=== PATIENT | male | born 1980 | race Caucasian/White ===

== ENCOUNTER 2023-04-09 18:38 | Inpatient (IN) | payer MEDICARE, OTHER, SELFPAY ==
[2023-04-09 18:40] VITALS: BP 121/76; PULSE 69; RESP 18; TEMP 36.6; O2SAT 99; BMI 22.4
--- NOTE | 2023-04-09 18:42 | ECG_ITS ---
[facility] Test Date: 2023-04-09 Pat Name: Chauncey Garcia Department: Room: Gender: Male Biometrics Experimentalist: : 1980 Requested By: Dion Enamorado Order Number: [id number] Geronimo MD: Isma Riggins M.D. Measurements Intervals [place] Rate: 50 P: 0 ID: 0 QRS: 67 QRSD: 96 T: 65 QT: 432 QTc: 394 Interpretive Statements SINUS BRADYCARDIA No previous ECG available for comparison Electronically Signed On 04-12-2023 7:59:18 OFFICE MACHINE INSPECTOR by Isma Riggins M.D. [email or web address]
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
[2023-04-09 18:57] LABS: Basophils % 0.3 %; Eosinophils # 0.1 10^3/uL (0.0-0.8); Eosinophils % 0.6 %; Hematocrit 42.4 % (37-53); Lymphocytes % 22.1 %; Mean Corpuscular HGB Conc 33.3 g/dL (30-55); Mean Corpuscular Hemoglobin 32.2 pg (27-33); Mean Corpuscular Volume 96.8 fl (82-101); Mean Platelet Volume 10.3 fL (7.4-10.4); Monocytes # 0.7 10^3/uL (0.2-0.9); Monocytes % 8.3 %; Neutrophils # 6.09 10^3/uL (1.8-7.7); Neutrophils % 68.5 %; Nucleated Red Blood Cells % 0 %; Platelet Count 349 10^3/cmm (157-399); Red Blood Count 4.38 10^6/uL (3.85-5.65); Red Cell Distribution Width 12.4 % (12.1-15.1)
[2023-04-09 19:06] VITALS: RESP 22
[2023-04-09 19:08] LABS: Add Urine Microscopic? NO; Charge for UA Resulting for Rev
[2023-04-09 19:13] LABS: Bilirubin Urine Neg (Negative); Blood Urine Neg (Negative); Glucose Urine UA Norm (Normal); Ketones Urine 1+ (Negative); Leukocyte Esterase Urine Negative (Negative); Nitrate Urine Negative (Negative); Protein Urine Neg (Negative); Specific Gravity, Urine 1.005 (1.005-1.030); Urine Appearance Clear (CLEAR); Urine Color Yellow (Yellow); Urobilinogen Urine Norm (Negative); pH Urine 6.5 (5-7)
[2023-04-09 19:15] LABS: Alanine Aminotransferase 20 U/L (0-41); Albumin Level 4.6 g/dL (3.5-5.2); Alkaline Phosphatase 71 U/L (40-130); Anion Gap 15.8 (5-19); Aspartate Amino Transferase 20 U/L (0-40); Blood Urea Nitrogen 14 mg/dL (6-20); Calcium 9.9 mg/dL (8.5-10.5); Carbon Dioxide 26 mmol/L (22-29); Chloride 101 mmol/L (98-107); Globulin 2.7 g/dL (1.3-4.6); Glucose 98 mg/dL (65-115); Osmolality Calculated 288 mOsm/kg (285-295); Potassium 3.8 mmol/L (3.5-5.1); Sodium 139 mmol/L (136-145); Total Protein 7.3 g/dL (6.6-8.7)
[2023-04-09 19:17] LABS: Acetaminophen < 5.0 ug/mL (10-30); Alcohol Level < 10 mg/dL (0-10); Salicylate < 0.3 mg/dL (3-10)
[2023-04-09 19:19] LABS: Amphetamines Screen Urine Negative (Negative); Barbiturates Screen Urine Negative (Negative); Benzodiazepines Screen Urine Negative (Negative); Cocaine Screen Urine Negative (Negative); Opiate Screen Urine Negative (Negative); PCP Screen Urine Negative (Negative); THC Screen Urine Positive (Negative)
[2023-04-09 20:21] VITALS: BP 142/85; PULSE 60; RESP 20; O2SAT 98
[2023-04-09 21:57] VITALS: BP 142/85; PULSE 60; RESP 20; O2SAT 98
[2023-04-10] MEDS: nicotine 4 mg lozenge MUCOUS MEM ×2 (05:09→09:49)
[2023-04-10 06:00] VITALS: BP 135/81; PULSE 71; RESP 18; O2SAT 97
[2023-04-10 08:28] LABS: Basophils % 0.3 %; Eosinophils % 0.5 %; Lymphocytes # 1.1 10^3/uL (0.8-4.8); Lymphocytes % 14.6 %; Mean Corpuscular HGB Conc 32.9 g/dL (30-55); Mean Corpuscular Hemoglobin 31.9 pg (27-33); Mean Platelet Volume 10.2 fL (7.4-10.4); Monocytes # 0.5 10^3/uL (0.2-0.9); Monocytes % 7.2 %; Neutrophils % 77.1 %; Nucleated Red Blood Cells % 0 %; Platelet Count 337 10^3/cmm (157-399); Red Blood Count 4.64 10^6/uL (3.85-5.65); Red Cell Distribution Width 12.6 % (12.1-15.1); White Blood Count 7.39 10^3/uL (3.29-11.43)
[2023-04-10 08:52] LABS: Anion Gap 14.7 (5-19); Blood Urea Nitrogen 11 mg/dL (6-20); Calcium 10.1 mg/dL (8.5-10.5); Carbon Dioxide 27 mmol/L (22-29); Chloride 100 mmol/L (98-107); Glucose 103 mg/dL (65-115); Osmolality Calculated 286 mOsm/kg (285-295); Potassium 3.7 mmol/L (3.5-5.1); Sodium 138 mmol/L (136-145)
[2023-04-10] MEDS: nicotine 2 mg Gum BUCCAL ×2 (09:21→18:27)
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
--- NOTE | 2023-04-10 09:59 | PC.NURSE ---
Dr. Gauthier approved pt to have nicotine tucker at earlier administration time than protocol.
--- NOTE | 2023-04-10 10:52 | PC.NURSE ---
laying in bed. patient has been frequenting the window, concerned about welfare of his pets. Patient called the PD to check on pets, but they refused.
[2023-04-10] MEDS: OLANZapine 5 mg ODT PO (11:33)
--- NOTE | 2023-04-10 12:30 | PC.NURSE ---
Patient was willing to take medication to help lower his anxieties. Patient anxious about the safety of his three cats and four dogs that are home without him. This nurse administered 5mg Zyprexa ODT. No adverse reactions.
[2023-04-10 14:00] VITALS: RESP 13
--- NOTE | 2023-04-10 18:37 | PC.NURSE ---
PT WAS RESTING QUIETLY, RESPIRATIONS WERE OBTAINED AT 13. WILL CONTINUE TO MONITOR.
[2023-04-10] MEDS: ARIPiprazole 10 mg Tablet PO (19:53)
[2023-04-10] MEDS: hyDROXYzine 25 mg Capsule 50 MG PO (20:38)
[2023-04-10] MEDS: trazodone 50 mg Tablet PO (20:38)
[2023-04-10 21:06] VITALS: BP 100/69; PULSE 67; RESP 18; O2SAT 97
[2023-04-11 06:00] VITALS: RESP 16
[2023-04-11] MEDS: nicotine 4 mg lozenge MUCOUS MEM ×2 (07:30→17:49)
[2023-04-11] MEDS: ARIPiprazole 10 mg Tablet PO (07:30)
--- NOTE | 2023-04-11 07:53 | P.NPUPN_ITS ---
Subjective NPU 2 Subjective: Patient presented today reporting that he is doing better than he expected. We discussed the fact that Dr. Delcid would be here tomorrow and will be making the decisions about discharge. He had reluctantly taking the Abilify and endorsed that he is really surprised about how much it helped how much it calm down his worry thinking about his dogs and his rapid thoughts. We discussed that it does appear that he is suffering from kelsi and this is a medication that really could help that and could even be considered as an injection so that he would not have adherence issues. He denied any side effects to the medication. Mental Status Exam 2 MSE Comments: This is a slender well-developed white male, in hospital scrubs, with adequate grooming and eye contact. No abnormal movements except for psychomotor agitation. Cooperative with exam in mild to moderate distress. Speech was increased rate and volume and slightly pressured. Mood described as anxious and upbeat because he needs to see his dogs; affect congruent and hyper. Thought process, organized. Thought content: patient denied any suicidal or homicidal ideation, there were no delusions reported but grandiose thinking noted, patient denied any auditory or visual hallucinations. Attention concentration were limited, and memory appeared unreliable at times, but none were formally tested. Alert and oriented times three. Insight and judgment appear limited . Impulse control is impaired. Vitals/I&O/Wt Last Vital Signs Temp 97.8 F 04/11/23 14:00 Pulse 65 04/11/23 14:00 Resp 13 04/11/23 14:00 BP 134/76 04/11/23 14:00 Pulse Ox 99 04/11/23 14:00 O2 Del Method Room Air 04/09/23 21:57 Weight last 48 hrs Weight 76.204 kg Weight 75.92 kg Data NPU 04/10/23 08:21 04/10/23 08:21 A&P Assessment and plan (1) Acute psychosis: (2) Kelsi: (3) Cannabis use disorder: Plan This is a 43-year-old white male with a reported history of mental health challenges that he has not treated with traditional medications but with excessive marijuana who presents reportedly open to medication if and will speed up his discharge. 1. Encourage individual, group, and milieu therapy. 2. Continue q-15-minute checks for safety. 3. Continue Abilify 10 mg p.o. daily. 4. Encourage sober living treatment after discharge at the highest level of care to which he is willing to commit. Involuntary Hold Information 2 96 Hour Hold: 96 Hour Involuntary Admission: Yes 96 Hour Hold Ending Date: 04/16/23 96 Hour Hold Ending Time: 00:01 Attestations NPU 2 Medical Necessity Statement*: Inpatient hospitalization is medically necessary and the clinically appropriate intervention, at this time. We will monitor medications and make changes as indicated. Likely length of stay is 2-4 days. Coding Level of Care Code Acute Code for Chg Fwd Diagnoses Acute psychosis F23 Kelsi F30.9 Cannabis use disorder F12.90
[2023-04-11] MEDS: hyDROXYzine 25 mg Capsule 50 MG PO ×2 (12:32→18:44)
[2023-04-11 14:00] VITALS: BP 134/76; PULSE 65; RESP 13; TEMP 36.6; O2SAT 99
[2023-04-11 20:07] VITALS: RESP 16
[2023-04-12] MEDS: nicotine 4 mg lozenge MUCOUS MEM ×6 (05:12→18:22)
[2023-04-12 06:00] VITALS: BP 144/87; PULSE 80; RESP 18; O2SAT 97
[2023-04-12] MEDS: ARIPiprazole 10 mg Tablet PO (08:21)
[2023-04-12 14:00] VITALS: BP 129/84; PULSE 70; RESP 13; TEMP 36.9; O2SAT 100
--- NOTE | 2023-04-12 19:37 | P.NPUPN_ITS ---
Subjective NPU 2 Subjective: 43-year-old male presenting with manic s ymptoms who continued to appear somewhat grandiose on the unit. Patient had reported some improvement with the Abilify. He had continued to report that he was uncertain as to why he was here in the hospital. Patient had discussed that he had a disagreement with the police. He had stated that he had been hospitalized in the past for reported bipolar disorder. He had admitted to the use of cannabis. He had stated that he was concerned about his dogs. He reported adequate sleep and stated that he was less irritable on Abilify. He reported no suicidal thoughts. He had continued to report having many special gifts while reporting that he spoke multiple languages and had extensive experience in a variety of vocational skills. He had minimized any side effects from his current medication regimen. Mental Status Exam 2 MSE Comments: This is a slender well-developed white male, in hospital scrubs, with adequate grooming and eye contact. No abnormal movements except for psychomotor agitation. He was cooperative with exam in mild to moderate distress. Speech was normal in volume and slightly pressured. Mood described as better. His affect appeared excessively euphoric and mood incongruent. Thought process was linear and organized. Thought content: patient denied any suicidal or homicidal ideation, there were no delusions reported but continued evidence of grandiosity. Patient denied any auditory or visual hallucinations. Attention concentration were limited, and memory appeared unreliable at times, but none were formally tested. Alert and oriented times three. Insight and judgment appear limited . Impulse control is impaired. Vitals/I&O/Wt Last Vital Signs Temp 98.5 F 04/12/23 14:00 Pulse 70 04/12/23 14:00 Resp 13 04/12/23 14:00 BP 129/84 04/12/23 14:00 Pulse Ox 100 04/12/23 14:00 O2 Del Method Room Air 04/09/23 21:57 Weight last 48 hrs Weight 76.204 kg Weight 75.92 kg Data NPU 04/10/23 08:21 04/10/23 08:21 A&P Assessment and plan (1) Acute psychosis: (2) Kelsi: (3) Cannabis use disorder: Plan This is a 43-year-old white male with a reported history of mental health challenges that he has not treated with traditional medications but with excessive marijuana who presents reportedly open to medication if and will speed up his discharge. 1. Encourage individual, group, and milieu therapy. 2. Continue q-15-minute checks for safety. 3. Increase Abilify to 15mg dailly. 4. Encourage sober living treatment after discharge at the highest level of care to which he is willing to commit. Involuntary Hold Information 2 96 Hour Hold: 96 Hour Involuntary Admission: Yes 96 Hour Hold Ending Date: 04/16/23 96 Hour Hold Ending Time: 00:01 Attestations NPU 2 Medical Necessity Statement*: Inpatient hospitalization is medically necessary and the clinically appropriate intervention, at this time. We will monitor medications and make changes as indicated. The patient's likely length of stay is 2-4 days. Coding Level of Care Code Acute Code for [facility] Diagnoses Acute psychosis F23 Kelsi F30.9 Cannabis use disorder F12.90
[2023-04-12 20:12] VITALS: BP 145/92; PULSE 63; RESP 18; TEMP 36.8; O2SAT 98
[2023-04-12] MEDS: trazodone 50 mg Tablet PO (20:21)
[2023-04-12] MEDS: OLANZapine 5 mg ODT PO (20:56)
--- NOTE | 2023-04-12 21:57 | PC.NURSE ---
PT UP IN BED COMPLAINS OF THE ROOM BEING COLD, INFORMED PT THAT RN WOULD GET HEAT TURNED UP. PT DENIES PAIN, SI, HI AND AVH AT THIS TIME. RATES ANXIETY 0/10 AND DEPRESSION 2/10. PT STATES HE HAS A HARD TIME SLEEPING AND ASKS FOR TRAZODONE. PT WAS GIVEN TRAZODONE 50 MG ORDERED FOR INSOMNIA. PT THEN CAME TO DESK AND SAID HE WAS ANXIOUS AND NEEDED THAT MEDICINE THAT GOES UNDER MY TONGUE CAUSE THAT'S ALL THAT HELPS WHEN I GET LIKE THIS. PT WAS GIVEN ZYDIS 5 MG ORDERED FOR INCREASED ANXIETY. ALL QUESTIONS ANSWERED AND SUPPORT WAS VOICED.
[2023-04-13 06:00] VITALS: BP 143/89; PULSE 69; RESP 18; TEMP 36.6; O2SAT 100
--- NOTE | 2023-04-13 06:30 | PC.NURSE ---
PT WAS GIVEN TRAZODONE AND ZYDIS LAST NIGHT FOR INSOMNIA AND ANXIETY. PT SLEPT APPROXIMATELY 9-10 HOURS. MEDICATIONS DEEMED EFFECTIVE.
[2023-04-13] MEDS: loperamide 2 mg Capsule PO (08:06)
[2023-04-13] MEDS: ARIPiprazole 10 mg Tablet 15 MG PO (08:06)
[2023-04-13] MEDS: nicotine 4 mg lozenge MUCOUS MEM ×3 (08:23→15:23)
[2023-04-13 14:00] VITALS: BP 98/67; PULSE 76; RESP 20; TEMP 36.9; O2SAT 98
[2023-04-13] MEDS: hyDROXYzine 25 mg Capsule 50 MG PO (15:23)
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
--- NOTE | 2023-04-13 16:36 | DCPLANNER ---
IMM was given to pt and copy placed in pts file.
[2023-04-13 16:50] VITALS: BP 98/67; PULSE 76; RESP 20; TEMP 36.9; O2SAT 98
== END 2023-04-13 18:00 | disposition home or self-care (01) | DRG 885 ==
LOC: ER 19:35 → NP 19:59
PROVIDERS: Admitting Provider Psychiatry & Neurology Psychiatry; Emergency Provider Internal Medicine; Visit Provider Psychiatry & Neurology Psychiatry
DX: F23 Brief psychotic disorder (principal); F30.9 Manic episode, unspecified; R45.850 Homicidal ideations; F12.90 Cannabis use, unspecified, uncomplicated; Z81.8 Family history of other mental and behavioral disorders; Z81.3 Family history of other psychoactive substance abuse and dependence
CPT/HCPCS: 36415; 80048; 80053; 80306; 80307; 81003; 85025; 93005; 97150; 97165; 99285

== ENCOUNTER 2023-04-26 07:21 | Emergency (ER) | payer MEDICARE, OTHER, SELFPAY ==
[2023-04-26 07:22] VITALS: BP 147/87; PULSE 68; RESP 18; TEMP 36.8; O2SAT 99
--- NOTE | 2023-04-26 07:24 | XR_ITS ---
WS: [id number] PORTABLE CHEST HISTORY: CXP COMPARISON: None available. Lungs are clear and well expanded. No pleural effusion or pneumothorax. Cardiac size: Normal. Mediastinum/Aorta: Normal mediastinum. No osseous abnormality seen. IMPRESSION: Unremarkable portable chest.
--- NOTE | 2023-04-26 07:24 | ECG_ITS ---
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 Measurements Intervals [place] Rate: 61 P: 59 OR: 186 QRS: 66 QRSD: 91 T: 69 QT: 406 QTc: 412 Interpretive Statements SINUS RHYTHM MINIMAL ST DEPRESSION [0.025+ mV ST DEPRESSION] Compared to ECG 04/09/2023 19:08:28 ST (T wave) deviation now present Sinus bradycardia no longer present Electronically Signed On 04-26-2023 19:26:03 PBX INSPECTOR by Arash Mary M.D. [id number]
[2023-04-26 07:36] LABS: Basophils % 0.5 %; Eosinophils # 0.2 10^3/uL (0.0-0.8); Eosinophils % 2.5 %; Lymphocytes # 1.9 10^3/uL (0.8-4.8); Lymphocytes % 29.5 %; Mean Corpuscular HGB Conc 33.6 g/dL (30-55); Mean Corpuscular Hemoglobin 32.3 pg (27-33); Mean Corpuscular Volume 96.1 fl (82-101); Mean Platelet Volume 10.2 fL (7.4-10.4); Monocytes # 0.5 10^3/uL (0.2-0.9); Monocytes % 8.4 %; Neutrophils # 3.78 10^3/uL (1.8-7.7); Neutrophils % 58.8 %; Nucleated Red Blood Cells % 0 %; Platelet Count 301 10^3/cmm (157-399); Red Blood Count 4.58 10^6/uL (3.85-5.65); Red Cell Distribution Width 12.9 % (12.1-15.1); White Blood Count 6.43 10^3/uL (3.29-11.43)
[2023-04-26 07:52] LABS: INR 0.96 (0.8-1.2)
[2023-04-26 07:57] LABS: Troponin(5th) Baseline 9 ng/L (0-15)
[2023-04-26 08:08] LABS: Alanine Aminotransferase 15 U/L (0-41); Albumin Level 4.5 g/dL (3.5-5.2); Alkaline Phosphatase 67 U/L (40-130); Anion Gap 17.7 (5-19); Aspartate Amino Transferase 17 U/L (0-40); Blood Urea Nitrogen 10 mg/dL (6-20); Calcium 10.3 mg/dL (8.5-10.5); Carbon Dioxide 24 mmol/L (22-29); Chloride 102 mmol/L (98-107); Globulin 2.5 g/dL (1.3-4.6); Glomerular Filtration Rate 91.7 mL/min (90-130); Glucose 96 mg/dL (65-115); NT Pro B Type Natriuretic Pept < 36 pg/mL (0-125); Osmolality Calculated 289 mOsm/kg (285-295); Potassium 3.7 mmol/L (3.5-5.1); Sodium 140 mmol/L (136-145); Total Bilirubin 0.8 mg/dL (0.15-1.2)
[2023-04-26 08:34] VITALS: RESP 18; O2SAT 98
[2023-04-26 08:57] LABS: Add Urine Microscopic? NO; Charge for UA Resulting for Rev
[2023-04-26 09:13] LABS: Bilirubin Urine Neg (Negative); Blood Urine Neg (Negative); Glucose Urine UA Norm (Normal); Leukocyte Esterase Urine Negative (Negative); Nitrate Urine Negative (Negative); Protein Urine Neg (Negative); Urine Appearance Clear (CLEAR); Urine Color Yellow (Yellow); Urobilinogen Urine Neg (Negative); pH Urine 6.5 (5-7)
[2023-04-26 09:14] LABS: Ketones Urine 2+ (Negative)
[2023-04-26 09:18] LABS: Amphetamines Screen Urine Negative (Negative); Barbiturates Screen Urine Negative (Negative); Benzodiazepines Screen Urine Negative (Negative); Cocaine Screen Urine Negative (Negative); Opiate Screen Urine Negative (Negative); PCP Screen Urine Negative (Negative); THC Screen Urine Positive (Negative)
[2023-04-26 09:26] LABS: Troponin 5 2HR 8.68 ng/L (0-15)
--- NOTE | 2023-04-26 09:27 | ECG_ITS ---
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 Measurements Intervals [place] Rate: 47 P: 66 AK: 208 QRS: 75 QRSD: 88 T: 66 QT: 406 QTc: 360 Interpretive Statements SINUS BRADYCARDIA Compared to ECG 04/26/2023 07:24:45 Sinus rhythm no longer present ST (T wave) deviation no longer present Electronically Signed On 04-26-2023 19:34:24 DIVING BOARD ASSEMBLER by Arash Mary M.D. [id number]
[2023-04-26 09:31] LABS: Troponin 5 2HR Delta -0.32 ABS# (0-10)
--- NOTE | 2023-04-26 09:31 | ED_ITS ---
HPI - Anxiety 2 General: Chief Complaint: Shortness of Breath/Dyspnea Stated Complaint: sob, chest pain Time Seen by Provider: 04/26/23 07:24 History of Present Illness: 43-year-old male presents emergency depa rtment via EMS personnel stating that he was recently placed on a psychiatric medication and since that time he is felt like he is short of breath and having intermittent chest discomfort. He does appear to be very fidgety and agitated. He is being very demanding of the nursing staff stating that he wants him to hurry up although he has been here just a few minutes. Patient does not appear to be short of breath while he is having conversation or with any exertion. He states his chest discomfort is just all over his chest and does not specifically have 1 area that is more painful than the rest. He states he is unaware what makes the pain better and what makes it worse. Associated symptoms: Reports chest pain and palpitations Review of Systems 2 General: Reports: 10 or more systems reviewed and unremarkable except in HPI and below Card: Reports: chest pain and palpitations Resp: Reports: dyspnea Psych: Reports: anxiety Physical Exam 2 Narrative: EXAM NARRATIVE: Constitutional: the patient appears well nourished and of normal development. Vital signs as documented. No acute distress at present. Alert and oriented-to person, place, time and situation. Very anxious appearing Head, eyes, ears, nose, mouth, throat: Normocephalic, atraumatic. Pupils-equal, round, reactive to light. No scleral icterus. Normal-appearing external ears. Normal appearing nasal turbinates, no drainage. No obvious oral lesions, posterior oropharynx without erythema or exudates. Neck: Supple, trachea is midline, no lymphadenopathy, no jugular venous distension, thyromegaly, or carotid bruits. Carotid upstrokes are brisk bilaterally. Lungs: clear to auscultation to all lung farmer. Symmetrical rise and fall of chest, no obvious signs of increased work of breathing at present. Cardiac: Regular rate and rhythm, positive S1, S2. No murmurs, rubs or gallops that I can appreciate Abdomen: Soft, non-tender to palpation, normal active bowel sounds to all quadrants. No palpable masses, no organomegaly and abdominal bruits. Extremities: 2+ pulses in the upper extremities that are equal bilaterally, 2+ pulses in the lower extremities that are equal bilaterally. Non-edematous. Moves all extremities well, sensation to all extremities are noted. Skin: Warm, dry, intact. Course 2 Vital Signs: Vital signs: Vital Signs Temperature 98.2 F 04/26/23 07:22 Pulse Rate 68 04/26/23 07:22 Respiratory Rate 18 04/26/23 08:34 Blood Pressure 147/87 04/26/23 07:22 Pulse Oximetry 98 04/26/23 08:34 Oxygen Delivery Me thod Room Air 04/26/23 08:34 MDM - Anxiety Medical Decision Making Physical exam completed and documented I we will obtain serial twelve-lead EKGs and serial cardiac enzymes as well as a CBC and CMP and a chest x-ray to evaluate. I will obtain a urinalysis and urine drug screen for evaluation for additional causes for his appearance of anxiety and fidgetiness. Medical Records I reviewed the patient's medical records. Lab Data I reviewed the patient's lab results. 04/26/23 07:08 04/26/23 07:08 Laboratory Results WBC 6.43 10^3/uL (3.29-11.43) 04/26/23 07:08 RBC 4.58 10^6/uL (3.85-5.65) 04/26/23 07:08 Hgb 14.80 g/dL (11.27-16.99) 04/26/23 07:08 Hct 44.0 % (37-53) 04/26/23 07:08 MCV 96.1 fl (82-101) 04/26/23 07:08 MCH 32.3 pg (27-33) 04/26/23 07:08 MCHC 33.6 g/dL (30-55) 04/26/23 07:08 RDW 12.9 % (12.1-15.1) 04/26/23 07:08 Plt Count 301 10^3/cmm (157-399) 04/26/23 07:08 MPV 10.2 fL (7.4-10.4) 04/26/23 07:08 Neut % (Auto) 58.8 % 04/26/23 07:08 Lymph % (Auto) 29.5 % 04/26/23 07:08 Norton % (Auto) 8.4 % 04/26/23 07:08 Eos % (Auto) 2.5 % 04/26/23 07:08 Baso % (Auto) 0.5 % 04/26/23 07:08 Neut # (Auto) 3.78 10^3/uL (1.8-7.7) 04/26/23 07:08 Lymph # (Auto) 1.9 10^3/uL (0.8-4.8) 04/26/23 07:08 Norton # (Auto) 0.5 10^3/uL (0.2-0.9) 04/26/23 07:08 Eos # (Auto) 0.2 10^3/uL (0.0-0.8) 04/26/23 07:08 Baso # (Auto) 0.0 10^3/uL (0.0-0.1) 04/26/23 07:08 Nucleated RBC % (auto) 0 % 04/26/23 07:08 Nucleated RBCs # 0.0 /100WBC 04/26/23 07:08 PT 13.10 SECONDS (12.1-14.9) 04/26/23 07:08 INR 0.96 (0.8-1.2) 04/26/23 07:08 Sodium 140 mmol/L (136-145) 04/26/23 07:08 Potassium 3.7 mmol/L (3.5-5.1) 04/26/23 07:08 Chloride 102 mmol/L (98-107) 04/26/23 07:08 Carbon Dioxide 24 mmol/L (22-29) 04/26/23 07:08 Anion Gap 17.7 (5-19) 04/26/23 07:08 BUN 10 mg/dL (6-20) 04/26/23 07:08 Creatinine 0.9 mg/dL (0.7-1.2) 04/26/23 07:08 GFR Calculation 91.7 mL/min (90-130) 04/26/23 07:08 Glucose 96 mg/dL (65-115) 04/26/23 07:08 Calculated Osmolality 289 mOsm/kg (285-295) 04/26/23 07:08 Calcium 10.3 mg/dL (8.5-10.5) 04/26/23 07:08 Total Bilirubin 0.8 mg/dL (0.15-1.2) 04/26/23 07:08 AST 17 U/L (0-40) 04/26/23 07:08 ALT 15 U/L (0-41) 04/26/23 07:08 Alkaline Phosphatase 67 U/L (40-130) 04/26/23 07:08 Troponin T Baseline 9 ng/L (0-15) 04/26/23 07:08 Troponin T 120 Minute 8.68 ng/L (0-15) 04/26/23 09:02 Delta Troponin T -0.32 ABS# (0-10) L 04/26/23 09:02 NT-Pro-B Natriuret Pep < 36 pg/mL (0-125) 04/26/23 07:08 Total Protein 7.0 g/dL (6.6-8.7) 04/26/23 07:08 Albumin 4.5 g/dL (3.5-5.2) 04/26/23 07:08 Globulin 2.5 g/dL (1.3-4.6) 04/26/23 07:08 Urine Color Yellow (Yellow) 04/26/23 08:30 Urine Appearance Clear (CLEAR) 04/26/23 08:30 Urine pH 6.5 (5-7) 04/26/23 08:30 Ur Specific Ranger 1.020 (1.005-1.030) 04/26/23 08:30 Urine Protein Neg (Negative) 04/26/23 08:30 Urine Glucose (UA) Norm (Normal) 04/26/23 08:30 Urine Ketones 2+ (Negative) H 04/26/23 08:30 Urine Blood Neg (Negative) 04/26/23 08:30 Urine Nitrate Negative (Negative) 04/26/23 08:30 Urine Bilirubin Neg (Negative) 04/26/23 08:30 Urine Urobilinogen Neg mg/dL (Negative) 04/26/23 08:30 Ur Leukocyte Esterase Negative (Negative) 04/26/23 08:30 Urine Opiates Screen Negative ng/mL (Negative) 04/26/23 08:30 Ur Barbiturates Screen Negative ng/mL (Negative) 04/26/23 08:30 Ur Phencyclidine Scrn Negative ng/mL (Negative) 04/26/23 08:30 Ur Amphetamines Screen Negative ng/mL (Negative) 04/26/23 08:30 U Benzodiazepines Scrn Negative ng/mL (Negative) 04/26/23 08:30 Urine Cocaine Screen Negative ng/mL (Negative) 04/26/23 08:30 U Marijuana (THC) Screen Positive ng/mL (Negative) H 04/26/23 08:30 All radiology interpretation(s) finalized by discharge EKG Data EKG 1: Interpretation: Twelve-lead EKG obtained at 724 and reviewed at 724 demonstrates sinus rhythm with a ventricular rate of 61 bpm HI interval 186 QRS duration 91 QT 4 6 QTc [address] elevation or depression to demonstrate acute ischemia or infarction at present. EKG 2: Interpretation: Twelve-lead EKG obtained at 927 and reviewed at 929 demonstrates sinus bradycardia with a ventricular rate of 47 bpm. HI interval 208, QRS duration 88, QT 406 QTc [address] elevation or depression to demonstrate acute ischemia at present. Discharge Plan Discharge Patient Disposition: Home Clinical Impression: Atypical chest pain, Cannabis use disorder, Anxiety Condition: Stable Prescriptions: No Action aripiprazole 15 mg tablet 15 mg PO DAILY 30 Days Qty: 30 1RF trazodone 50 mg Tablet 50 mg PO BEDTIME PRN (Reason: Sleep) 30 Days Qty: 30 1RF Discharge Orders: Discharge ED (Routine); Ordered 04/26/23 Ordered By: Dion Enamorado Discharge Diet: Advance as tolerated Discharge Activity: Resume usual activity Patient Instructions: Opioid Safety, Pain Management Activity Restrictions/Additional Instructions: Activity Restrictions/Additional Instructions: Thank you for choosing [facility] for your healthcare needs today. Please realize that you were seen in the Emergency Department and that we are providing you with an emergency medical screening exam and this may not be a complete and all inclusive of all the testing and or medical work-up that you may need to determine your ailment or severity of your illness. It is very important that you follow-up as instructed with your Primary care provider or Specialist for additional evaluation and to discuss your medical treatment plan. You may return to the Emergency Department should you have concerns or if your condition changes or worsens in any way. Coding Level of Care Code ED Geology Scientist for Ankita Matias
== END 2023-04-26 10:10 | disposition home or self-care (01) ==
PROVIDERS: Emergency Provider Internal Medicine
DX: R07.89 Other chest pain (principal); F41.9 Anxiety disorder, unspecified; F12.90 Cannabis use, unspecified, uncomplicated
CPT/HCPCS: 36415; 71045; 80053; 80306; 81003; 83880; 84484; 85025; 85610; 93005; 99285